=== PATIENT | female | born 2000 | race Caucasian/White ===

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

== ENCOUNTER 2018-12-15 15:59 | Emergency (ER) | payer OTHER ==
[~2018-12-15] VITALS: Ht 114.3 cm; Wt 61.4 kg
[2018-12-15] MEDS ORDERED: ACETAMINOPHEN 325 MG TAB PO ONE (16:15)
--- NOTE | 2018-12-15 17:27 | REP ---
CT of the cervical spine: Axial images are acquired helical scanning in the reformatted in sagittal coronal projections. There is scoliosis convex left. The skull base, C1 and C2 are unremarkable. The T1 vertebra is partially excluded at the inferior film margin. The remainder of the vertebral body heights are normal. Interspacing is normal. Alignment is normal. The facets are normally aligned. The prevertebral soft tissues are unremarkable. There are no posterior element fractures. Impression: There is no fracture or listhesis. There is scoliosis convex right. Please refer to the cervical spine MRI dated 06/11/2014 for further information. Electronically Signed by Marcus Burks MD 12/15/2018 05:19 P
[2018-12-15] MEDS ORDERED: ACET-683 PO (17:29)
[2018-12-15] MEDS ORDERED: CYCL5TAB PO (17:29)
[2018-12-15] MEDS ORDERED: IBUP-1022 PO (17:29)
[2018-12-15] MEDS ORDERED: IBUPROFEN 600 MG TAB PO ONE (17:30)
--- NOTE | 2018-12-15 17:34 | REP ---
CT of the brain without IV contrast: There are no comparisons. There is no subdural or epidural hematoma. There is no intraparenchymal or subarachnoid hemorrhage. There is no edema, mass effect or midline shift. The lateral ventricles appear enlarged. Please refer to the brain MRI dated 12/26, 06/25/2013 for further information. The There is opacification of the ethmoid sinus air cells, compatible with sinusitis. Impression: There is no subdural or epidural hematoma or other acute intracranial hemorrhage. There is no edema, mass effect or midline shift. The lateral ventricles appear enlarged. Please refer to the brain MRI dated 12/31/2013 for further information. Ethmoid sinusitis. Electronically Signed by Marcus Burks MD 12/15/2018 05:25 P
[2018-12-15 18:25] VITALS: BP 147/84
== END 2018-12-15 18:28 | disposition home or self-care (01) ==
LOC: M ED 15:59
DX: M54.2 Cervicalgia (principal); M54.6 Pain in thoracic spine; R51 Headache; V43.52XA Car driver injured in collision with other type car in traffic accident, initial encounter; Y92.410 Unspecified street and highway as the place of occurrence of the external cause; F32.9 Major depressive disorder, single episode, unspecified; M51.9 Unspecified thoracic, thoracolumbar and lumbosacral intervertebral disc disorder